=== PATIENT | female | born 1985 | race Caucasian/White ===

== ENCOUNTER 2020-03-09 18:13 | Emergency (ER) | payer OTHER ==
[~2020-03-09] VITALS: Ht 160 cm; Wt 99.8 kg
[~2020-03-09 18:13] MED LIST: PERCOCET PO
[2020-03-09] MEDS ORDERED: NORCO 5-325 TA1 EAC2 PO (19:03)
[2020-03-09] MEDS ORDERED: IBUPROFEN 800800 M1 PO (19:03)
[2020-03-09 19:20] VITALS: BP 122/76
== END 2020-03-09 19:21 | disposition home or self-care (01) ==
LOC: M.ERS 18:13
DX: S93.692A Other sprain of left foot, initial encounter (principal); Z88.2 Allergy status to sulfonamides; Z88.8 Allergy status to other drugs, medicaments and biological substances; X50.1XXA Overexertion from prolonged static or awkward postures, initial encounter; Y93.89 Activity, other specified; Y92.89 Other specified places as the place of occurrence of the external cause; Y99.8 Other external cause status

== ENCOUNTER → 2020-03-13 | Outpatient (CLI) | payer OTHER ==
[~2020-03-13] MED LIST changes: +IBUPROFEN 800800 M1 PO; +NORCO 5-325 TA1 EAC2 PO
== END ==
LOC: M.RAD 12:20
PROVIDERS: ATTEND Specialist
DX: M79.672 Pain in left foot (principal)

== ENCOUNTER → 2020-11-15 | Outpatient (CLI) | payer OTHER ==
[2020-11-15 10:40] LABS: ABSOLUTE BASOPHILS 0.1 thou/uL (0.0-0.2); ABSOLUTE EOSINOPHILS 0.1 thou/uL (0.0-0.7); ABSOLUTE LYMPHOCYTES 2.6 thou/uL (0.8-5.3); ABSOLUTE MONOCYTES 0.4 thou/uL (0.0-1.2); ABSOLUTE NEUTROPHILS 5.9 thou/uL (1.6-8.1); EOSINOPHILS 1.3 %; HEMATOCRIT 39.3 % (37.0-47.0); HEMOGLOBIN 13.4 gm/dL (12.0-15.0); LYMPHOCYTES 28.6 %; MCH 30.5 pg (26.0-34.0); MCHC 34.1 g/dL (28.0-37.0); MCV 89.3 fL (80.0-100.0); MONOCYTES 4.7 %; MPV 6.6 fl. (7.2-11.1); NUCLEATED RBCS 0 /100WBC; PLATELET COUNT* 424 thou/uL (150-400); POLYS 64.4 %; WBC 9.2 thou/uL (4.0-11.0)
[2020-11-15 10:53] LABS: ALBUMIN 3.7 g/dL (3.4-5.0); ALKALINE PHOSPHATASE 82 U/L (46-116); ANION GAP 10 mmol/L (7-16); BUN 17 mg/dL (7-18); CALCIUM 9.2 mg/dL (8.5-10.1); CHLORIDE 103 mmol/L (98-107); CHOLESTEROL 169 mg/dL (<200); CO2 27 mmol/L (21-32); CREATININE 1.1 mg/dL (0.6-1.3); GLUCOSE 100 mg/dL (70-99); HDL CHOLESTEROL 43 mg/dL (>40); LDL CHOLESTEROL 103 mg/dL (<100); POTASSIUM 4.7 mmol/L (3.5-5.1); SGOT 29 U/L (15-37); SGPT 71 U/L (30-65); SODIUM 140 mmol/L (136-145); TC:HDL 3.9 Ratio (Not establshd); TOTAL BILIRUBIN 0.5 mg/dL (<0.1-1.0); TOTAL PROTEIN 7.2 g/dL (6.4-8.2); TRIGLYCERIDE 116 mg/dL (<150); VLDL 23 mg/dL (<40)
[2020-11-15 10:57] LABS: SERUM ASSESSMENT Clear
== END ==
LOC: M.LAB 10:13
PROVIDERS: ATTEND Specialist
DX: Z01.419 Encounter for gynecological examination (general) (routine) without abnormal findings (principal); R03.0 Elevated blood-pressure reading, without diagnosis of hypertension